=== PATIENT | female | born 1965 | race Hispanic/Latino ===

== ENCOUNTER 2017-05-11 11:42 | Emergency (ER) | payer OTHER ==
[~2017-05-11] VITALS: Ht 165.1 cm; Wt 90.7 kg
[2017-05-11 13:36] LABS: BASOPHILS % 0.3 % (0.0-1.0); EOSINOPHILS # (AUTO) 0.2 (0.0-0.4); EOSINOPHILS % 2.1 % (0.0-6.0); HEMOGLOBIN 11.6 g/dL (12.0-16.0); LYMPHOCYTES # (AUTO) 2.2 (1.0-3.2); LYMPHOCYTES % 29.6 % (18.0-39.1); MEAN CORPUSCULAR HEMOGLOBIN 28.9 pg (28-32); MEAN CORPUSCULAR HGB CONC 33.1 g/dL (31-35); MEAN CORPUSCULAR VOLUME 87.1 fL (81-99); MONOCYTES # (AUTO) 0.5 (0.2-0.8); MONOCYTES % 7.2 % (4.4-11.3); NEUTROPHILS # (AUTO) 4.6 (2.1-6.9); NEUTROPHILS % 60.7 % (38.7-80.0); PLATELET COUNT 237 x10e3/uL (140-360); RED BLOOD COUNT 4.02 x10e6/uL (3.6-5.1); RED CELL DISTRIBUTION WIDTH 12.2 % (11.7-14.4)
[2017-05-11 13:55] LABS: ANION GAP 12.3 mmol/L (8-16); BLOOD UREA NITROGEN 15 mg/dL (7-26); BUN/CREATININE RATIO 25 (6-25); CALCIUM 9.7 mg/dL (8.4-10.2); CARBON DIOXIDE 25 mmol/L (22-29); CHLORIDE 104 mmol/L (98-107); EST GLOMERULAR FILTRATION RATE > 60 ML/MIN (60-); GLUCOSE 102 mg/dL (74-118); POTASSIUM 4.3 mmol/L (3.5-5.1); SODIUM 137 mmol/L (136-145)
[2017-05-11 14:08] LABS: ALANINE AMINOTRANSFERASE 20 IU/L (0-55); ALBUMIN 3.9 g/dL (3.5-5.0); ALKALINE PHOSPHATASE 73 IU/L (40-150); BILIRUBIN,DIRECT 0.2 mg/dL (0.0-0.5)
--- NOTE | 2017-05-11 15:06 | Diagnostic Imaging Report ---
Exam: Maxillofacial CT with IV contrast History: Left jaw/TMJ pain versus trigeminal neuralgia Comparison studies: None Technique: Axial images were obtained through the maxillofacial region. Coronal and sagittal images reconstructed from the axial data. Intravenous contrast: None Findings: Soft tissues: No abnormalities. Bones: No fractures or bony abnormalities. Specifically, no abnormalities at the temporomandibular joints. The mandibular condyles are seen within the glenoid fossa. No osteophytosis, subchondral sclerosis or subchondral cyst formation at the mandibular condyles. Dentition: No periapical lucency in the mandible to account for jaw pain. Carious right second maxillary molar. Root canal changes at the left first maxillary premolar. Orbits: Globes: Intact Extra or intraconal abnormalities: None. Paranasal sinuses: Mild mucosal thickening with small layering fluid level in the left maxillary sinus could be correlated for acute sinusitis. Mild mucosal thickening in the right maxillary sinus. Additionally there is partially opacified right sphenoid sinus which contains small layering secretions and small left sphenoid sinus retention cyst which does not result in sphenoethmoidal recess obstruction. Middle ear and mastoid cavities: Clear on the right. Chronic inflammatory changes at the left mastoid tip which is partially opacified with thickened and sclerotic septa. Incidental findings: Mild calcified atherosclerosis in the carotid bulbs without significant stenosis. Partially imaged congenital pericallosal lipoma. IMPRESSION: 1. No TMJ abnormalities identified. If there is remains concern for TMJ abnormality, dedicated dynamic TMJ MRI could further evaluate for any potential disc/meniscus abnormalities which cannot adequately evaluated by CT. 2. Mild inflammatory changes in the paranasal sinuses with small fluid level in the left maxillary sinus and secretions in the right sphenoid sinus which could be correlated for acute sinusitis. Signed by: Dr. Oswald Nation M.D. on 05/11/2017 3:02 PM
[2017-05-11] MEDS ORDERED: IOPAMIDOL 370 MG/ML 200 ML INFUS..BTL INJ ONE (15:16)
[2017-05-11] MEDS ORDERED: SODIUM CHLORIDE 0.9% 50ML 50 ML ONE (15:16)
== END 2017-05-11 15:43 | disposition home or self-care (01) ==
LOC: ER 11:42
DX: G50.0 Trigeminal neuralgia (principal); J32.9 Chronic sinusitis, unspecified
CPT/HCPCS: 36415; 70487; 80048; 80076; 84702; 85025; 86140; 99284; Q9967

== ENCOUNTER 2020-02-09 00:41 | Inpatient (IN) | payer BC, OTHER ==
[2020-02-09] VITALS (9 sets, daily range): BP systolic 124–165; BP diastolic 68–86
[~2020-02-09] VITALS: Ht 165.1 cm; Wt 83.5 kg
[2020-02-09 01:24] LABS: BASOPHILS % 0.4 % (0.0-1.0); EOSINOPHILS # (AUTO) 0.1 (0.0-0.4); HEMATOCRIT 34.1 % (34.2-44.1); HEMOGLOBIN 11.2 g/dL (12.0-16.0); LYMPHOCYTES # (AUTO) 2.7 (1.0-3.2); LYMPHOCYTES % 39.2 % (18.0-39.1); MEAN CORPUSCULAR HEMOGLOBIN 27.9 pg (28-32); MEAN CORPUSCULAR HGB CONC 32.8 g/dL (31-35); MONOCYTES # (AUTO) 0.7 (0.2-0.8); MONOCYTES % 10.7 % (4.4-11.3); NEUTROPHILS # (AUTO) 3.2 (2.1-6.9); NEUTROPHILS % 46.8 % (38.7-80.0); PLATELET COUNT 348 x10e3/uL (140-360); RED BLOOD COUNT 4.01 x10e6/uL (3.6-5.1)
[2020-02-09 01:42] LABS: ALANINE AMINOTRANSFERASE 23 IU/L (0-55); ALBUMIN 3.9 g/dL (3.5-5.0); ALKALINE PHOSPHATASE 109 IU/L (40-150); ANION GAP 15.4 mmol/L (8-16); BLOOD UREA NITROGEN 18 mg/dL (7-26); BUN/CREATININE RATIO 21 (6-25); CALCIUM 9.7 mg/dL (8.4-10.2); CARBON DIOXIDE 20 mmol/L (22-29); CHLORIDE 103 mmol/L (98-107); CREATINE KINASE 101 IU/L (29-168); CREATININE, SERUM 0.85 mg/dL (0.57-1.11); EST GLOMERULAR FILTRATION RATE > 60 ML/MIN (60-); GLUCOSE 240 mg/dL (74-118); POTASSIUM 4.4 mmol/L (3.5-5.1); SODIUM 134 mmol/L (136-145)
[2020-02-09 01:43] LABS: INR 0.76
[2020-02-09 01:44] LABS: PARTIAL THROMBOPLASTIN TIME 25.2 seconds (23.8-35.5)
[2020-02-09] MEDS ORDERED: SODIUM CHLORIDE 0.9% 250ML 250 ML IV ONE (01:45)
[2020-02-09] MEDS ORDERED: IOPAMIDOL 370 MG/ML 200 ML INFUS..BTL INJ ONE ×2 (02:12→12:48)
[2020-02-09] MEDS ORDERED: SODIUM CHLORIDE 0.9% 50ML 50 ML ONE ×2 (02:12→13:51)
[2020-02-09] MEDS ORDERED: ASPIRIN 81 MG CHEW TAB PO ONE (03:00)
[2020-02-09] MEDS ORDERED: DEXTROSE 50% SYRINGE 50 ML IV PRN (04:45)
[2020-02-09] MEDS ORDERED: CEFTRIAXONE SOD 1 GM/NS 50 ML 100 ML IV ONE (05:04)
[2020-02-09] MEDS: CEFTRIAXONE SOD 2 GM/NS 100 ML 100 ML IV SCH (05:05)
[2020-02-09 07:00] LABS: CREATINE KINASE MB 28.5 ng/mL (0-5.0)
[2020-02-09] MEDS: INSULIN REGULAR, HUMAN 100 UNIT/1 ML 3ML VIAL SQ SCH ×4 (07:41→21:30)
[2020-02-09] MEDS ORDERED: CLOPIDOGREL BISULFATE 75 MG TAB PO ONE (08:00)
[2020-02-09] MEDS ORDERED: ENOXAPARIN 30 MG/0.3 ML SYR SC SCH (09:00)
[2020-02-09] MEDS ORDERED: DEXAMETHASONE SOD PHOS 10 MG/1 ML VIAL IV SCH (09:00)
[2020-02-09] MEDS ORDERED: AZITHROMYCIN 500MG/NS 250 ML 250 ML IV SCH (09:00)
[2020-02-09 09:21] LABS: BASOPHILS % 0.3 % (0.0-1.0); EOSINOPHILS # (AUTO) 0.1 (0.0-0.4); EOSINOPHILS % 1.5 % (0.0-6.0); HEMATOCRIT 32.7 % (34.2-44.1); HEMOGLOBIN 10.8 g/dL (12.0-16.0); LYMPHOCYTES # (AUTO) 1.7 (1.0-3.2); LYMPHOCYTES % 25.9 % (18.0-39.1); MEAN CORPUSCULAR HEMOGLOBIN 28.1 pg (28-32); MEAN CORPUSCULAR VOLUME 84.9 fL (81-99); MONOCYTES # (AUTO) 0.7 (0.2-0.8); NEUTROPHILS % 61.7 % (38.7-80.0); PLATELET COUNT 352 x10e3/uL (140-360); RED BLOOD COUNT 3.85 x10e6/uL (3.6-5.1); RED CELL DISTRIBUTION WIDTH 12.1 % (11.7-14.4)
[2020-02-09] MEDS ORDERED: SODIUM CHLORIDE 0.9% 1000ML 1,000 ML IV SCH (09:30)
[2020-02-09 09:35] LABS: ALANINE AMINOTRANSFERASE 27 IU/L (0-55); ALBUMIN 3.7 g/dL (3.5-5.0); ALKALINE PHOSPHATASE 80 IU/L (40-150); ANION GAP 15.3 mmol/L (8-16); BLOOD UREA NITROGEN 14 mg/dL (7-26); BUN/CREATININE RATIO 20 (6-25); CALCIUM 9.1 mg/dL (8.4-10.2); CARBON DIOXIDE 20 mmol/L (22-29); CHLORIDE 105 mmol/L (98-107); EST GLOMERULAR FILTRATION RATE > 60 ML/MIN (60-); GLUCOSE 199 mg/dL (74-118); POTASSIUM 4.3 mmol/L (3.5-5.1); SODIUM 136 mmol/L (136-145)
[2020-02-09] MEDS: ASCORBIC ACID 500 MG TAB PO SCH ×2 (10:06→18:33)
[2020-02-09] MEDS: ZINC SULFATE 220 MG CAP PO SCH (10:06)
[2020-02-09] MEDS: ASPIRIN 81 MG ENTERIC COATED PO SCH (10:06)
[2020-02-09 10:30] LABS: THYROID STIMULATING HORMONE 2.152 uIU/mL (0.350-4.940)
[2020-02-09] MEDS ORDERED: LIDOCAINE HCL 2% LOCAL 20 ML VIAL ONE (12:47)
[2020-02-09] MEDS ORDERED: FENTANYL CITRATE/PF 100MCG/2 ML INJ ONE (12:47)
[2020-02-09] MEDS ORDERED: EPTIFIBATIDE 0 ML ONE (12:47)
[2020-02-09] MEDS ORDERED: MIDAZOLAM HCL 2 MG/2 ML VIAL ONE (12:47)
[2020-02-09] MEDS ORDERED: SODIUM CHLORIDE 0.9% 1000ML 1,000 ML ONE (12:48)
[2020-02-09] MEDS ORDERED: HEPARIN SOD/SOD CHLORIDE 2,000 ML ONE (12:48)
[2020-02-09] MEDS ORDERED: BIVALRIUDIN 250 MG/VIAL VIAL IV ONE (13:51)
[2020-02-09] MEDS ORDERED: CEFAZOLIN SOD 2 GM/D5W 50ML 0 ML IV ONE (14:25)
[2020-02-09] MEDS ORDERED: CLOPIDOGREL BISULFATE 75 MG TAB ONE (14:28)
[2020-02-09] MEDS ORDERED: HYDROCODONE/APAP 5MG-325MG TAB PO PRN (15:15)
[2020-02-09] MEDS ORDERED: ONDANSETRON HCL INJ 2MG/ML 2ML 2 MG/ML VIAL IV PRN (15:15)
[2020-02-09] MEDS: SODIUM CHLORIDE 0.9% 1000ML 1,000 ML IV SCH (18:15)
[2020-02-09] MEDS: METOPROLOL TARTRATE 25 MG TAB PO SCH (18:33)
[2020-02-09] MEDS ORDERED: ZOLPIDEM TARTRATE 5 MG TAB PO PRN (21:00)
[2020-02-09] MEDS ORDERED: ATORVASTATIN 20 MG TAB PO SCH (21:00)
[2020-02-09] MEDS ORDERED: ATORVASTATIN 40 MG TAB PO SCH (21:00)
[2020-02-10 00:10] VITALS: BP 122/63
[2020-02-10] MEDS: SODIUM CHLORIDE 0.9% 1000ML 1,000 ML IV SCH ×2 (01:23→11:15)
[2020-02-10 04:05] VITALS: BP 131/65
[2020-02-10 05:16] LABS: BASOPHILS % 0.2 % (0.0-1.0); EOSINOPHILS # (AUTO) 0.1 (0.0-0.4); EOSINOPHILS % 1.2 % (0.0-6.0); HEMATOCRIT 31.3 % (34.2-44.1); HEMOGLOBIN 10.2 g/dL (12.0-16.0); LYMPHOCYTES # (AUTO) 2.2 (1.0-3.2); LYMPHOCYTES % 26.8 % (18.0-39.1); MEAN CORPUSCULAR HEMOGLOBIN 28.4 pg (28-32); MEAN CORPUSCULAR HGB CONC 32.6 g/dL (31-35); MEAN CORPUSCULAR VOLUME 87.2 fL (81-99); MONOCYTES # (AUTO) 0.9 (0.2-0.8); MONOCYTES % 10.7 % (4.4-11.3); NEUTROPHILS # (AUTO) 4.9 (2.1-6.9); NEUTROPHILS % 60.6 % (38.7-80.0); PLATELET COUNT 349 x10e3/uL (140-360); RED BLOOD COUNT 3.59 x10e6/uL (3.6-5.1)
[2020-02-10] MEDS: CEFTRIAXONE SOD 2 GM/NS 100 ML 100 ML IV SCH (05:29)
[2020-02-10 05:42] LABS: ALANINE AMINOTRANSFERASE 22 IU/L (0-55); ALBUMIN 3.2 g/dL (3.5-5.0); ALBUMIN/GLOBULIN RATIO 0.9 (0.8-2.0); ALKALINE PHOSPHATASE 78 IU/L (40-150); BLOOD UREA NITROGEN 11 mg/dL (7-26); BUN/CREATININE RATIO 17 (6-25); CARBON DIOXIDE 22 mmol/L (22-29); CHLORIDE 105 mmol/L (98-107); CHOL/HDL RATIO 5.6 (3.0-3.6); CHOLESTEROL 192 MD/DL (0-199); CREATININE, SERUM 0.63 mg/dL (0.57-1.11); EST GLOMERULAR FILTRATION RATE > 60 ML/MIN (60-); GLUCOSE 226 mg/dL (74-118); HDL CHOLESTEROL 34 MG/DL (40-60); LDL CHOLESTEROL 100 MG/DL (60-130); SODIUM 136 mmol/L (136-145); TRIGLYCERIDES 292 MG/DL (0-149)
[2020-02-10] MEDS ORDERED: LEVOTHYROXINE SODIUM 88 MCG TAB PO SCH (06:00)
[2020-02-10 06:06] LABS: THYROID STIMULATING HORMONE 1.964 uIU/mL (0.350-4.940)
[2020-02-10] MEDS: INSULIN REGULAR, HUMAN 100 UNIT/1 ML 3ML VIAL SQ SCH ×2 (07:30→11:30)
[2020-02-10 08:00] VITALS: BP 135/69
[2020-02-10] MEDS: METOPROLOL TARTRATE 25 MG TAB PO SCH (08:29)
[2020-02-10] MEDS: ZINC SULFATE 220 MG CAP PO SCH (08:29)
[2020-02-10] MEDS: ASCORBIC ACID 500 MG TAB PO SCH (08:29)
[2020-02-10] MEDS: ASPIRIN 81 MG ENTERIC COATED PO SCH (08:29)
[2020-02-10 08:46] VITALS: BP 135/69
[2020-02-10] MEDS ORDERED: CLOPIDOGREL BISULFATE 75 MG TAB PO SCH (09:00)
[2020-02-10 12:00] VITALS: BP 140/81
[2020-02-10] MEDS ORDERED: LOPRESSOR25 MG PO (12:29)
[2020-02-10] MEDS ORDERED: PLAVIX75 MG PO (12:29)
[2020-02-10] MEDS ORDERED: Atorvastatin PO (12:29)
[2020-02-10] MEDS ORDERED: ASPIRIN EC81 MG PO (12:29)
[2020-02-15] MEDS ORDERED: DEXAMETHASONE SOD PHOS 10 MG/1 ML VIAL IV SCH (09:00)
== END 2020-02-10 15:42 | disposition home or self-care (01) | DRG 246 ==
LOC: ER 01:08 → ERHOLD 04:48 → IMCU 16:00
PROVIDERS: ADMIT Internal Medicine; ATTEND Internal Medicine
PROC: 8E0ZXY6 Isolation (ICD-10-PCS; principal; 2020-02-09)
PROC: 027034Z Dilation of Coronary Artery, One Artery with Drug-eluting Intraluminal Device, Percutaneous Approach (ICD-10-PCS; 2020-02-09)
PROC: 4A023N7 Measurement of Cardiac Sampling and Pressure, Left Heart, Percutaneous Approach (ICD-10-PCS; 2020-02-09)
PROC: B2111ZZ Fluoroscopy of Multiple Coronary Arteries using Low Osmolar Contrast (ICD-10-PCS; 2020-02-09)
PROC: B2151ZZ Fluoroscopy of Left Heart using Low Osmolar Contrast (ICD-10-PCS; 2020-02-09)
DX: I21.4 Non-ST elevation (NSTEMI) myocardial infarction (principal); U07.1 COVID-19; J12.9 Viral pneumonia, unspecified; J15.9 Unspecified bacterial pneumonia; E11.9 Type 2 diabetes mellitus without complications; E03.9 Hypothyroidism, unspecified; E78.00 Pure hypercholesterolemia, unspecified; Z82.49 Family history of ischemic heart disease and other diseases of the circulatory system; E66.9 Obesity, unspecified; Z68.30 Body mass index [BMI] 30.0-30.9, adult
CPT/HCPCS: 36415; 71045; 71260; 80053; 80061; 82550; 82553; 82948; 83036; 84443; 84484; 85025; 85379; 85610; 85730; 92928; 93005; 93306; 93458; 99152; 99153; 99285; C1760; C1766; C1876; C1887; J0456; J0583; J0690; J0696; J1327; J1817; J2001; J2250; J3010; J7030; J7050; Q9967; U0002